=== PATIENT | female | born 1940 | race Two or more races ===

== ENCOUNTER 2018-10-02 19:27 | Inpatient (IN) | payer OTHER ==
[~2018-10-02] VITALS: Ht 162.6 cm; Wt 79.4 kg
[2018-10-04] MEDS ORDERED: LOSARTAN-HCTZ1 EACH PO (15:32)
[2018-10-04] MEDS ORDERED: ZYRTEC10 M2 PO (15:33)
[2018-10-04] MEDS ORDERED: PROTONIX40 MG PO (15:33)
[2018-10-04] MEDS ORDERED: SINGULAIR10 MG PO (15:33)
[2018-10-04] MEDS ORDERED: ZOCOR20 MG PO (15:33)
[2018-10-04] MEDS ORDERED: HORIZANT300 MG PO (15:34)
[2018-10-04] MEDS ORDERED: VOLTAREN100 GM TOP (15:34)
[2018-10-15] MEDS ORDERED: INTEGRA F CAPS1 EACH PO (14:17)
[2018-10-15] MEDS ORDERED: LOSARTAN-HCTZ1 EACH PO (14:17)
[2018-10-15] MEDS ORDERED: NEURONTIN300 MG PO (14:17)
[2018-10-15] MEDS ORDERED: PROTONIX40 MG PO (14:17)
[2018-10-15] MEDS ORDERED: SIMVASTATIN20 MG PO (14:17)
[2018-10-15] MEDS ORDERED: XARELTO10 MG PO (14:17)
== END 2018-10-15 15:32 | disposition home or self-care (01) | DRG 470 ==
LOC: O/R 10-13 06:10 → SURH 10-13 06:10
PROVIDERS: ADMIT Orthopaedic Surgery
PROC: 0SRC0J9 Replacement of Right Knee Joint with Synthetic Substitute, Cemented, Open Approach (ICD-10-PCS; principal; 2018-10-13 11:00)
DX: M17.11 Unilateral primary osteoarthritis, right knee (principal)

== ENCOUNTER 2021-11-25 05:21 | Day surgery (SDC) | payer OTHER ==
[~2021-11-25 05:21] MED LIST: ADULT LOW DOSE81 M1 PO; CENTRUM ADULTS1 EACH PO; HORIZANT300 MG PO; INTEGRA F CAPS1 EACH PO; LOSARTAN-HCTZ1 EACH PO; NEURONTIN300 MG PO; PROTONIX40 MG PO; SIMVASTATIN20 MG PO; SINGULAIR10 MG PO; TRELE IH; VOLTAREN100 GM TOP; XARELTO10 MG PO; ZOCOR20 MG PO; ZYRTEC10 M2 PO
== END 2021-11-25 14:50 | disposition home or self-care (01) ==
LOC: CIR.AMB 05:21
PROVIDERS: ATTEND Obstetrics & Gynecology Gynecology
DX: N72 Inflammatory disease of cervix uteri (principal); N81.11 Cystocele, midline; N88.4 Hypertrophic elongation of cervix uteri; N81.83 Incompetence or weakening of rectovaginal tissue; N81.5 Vaginal enterocele; N81.6 Rectocele; Z20.822 Contact with and (suspected) exposure to COVID-19